=== PATIENT | female | born 1975 | race Caucasian/White ===

== ENCOUNTER 2024-04-29 08:23 | Observation (INO) ==
[2024-04-29 09:51] LABS: ABS Eosinophils 0.2 10^3/uL (0.0-0.5); ABS Lymphocytes 2.3 10^3/uL (1.0-4.8); ABS Monocytes 0.6 10^3/uL (0.0-0.9); ABS Neutrophils 4.6 10^3/uL (1.5-7.6); ABS Nucleated RBC 0.01 10^3/ul; Eosinophil % 2.9 %; Hematocrit 36.5 % (35-45); Hemoglobin 12.5 g/dL (11.5-14.3); Lymphocyte % 29.2 %; Mean Corpuscular Hemoglobin 30.1 pg (27-33); Mean Corpuscular Hgb Conc 34.3 g/dL (31-36); Mean Corpuscular Volume 87.8 fL (80-97); Mean Platelet Volume 8.7 fL (7.5-11.2); Nucleated Red Blood Cells % 0.2 %/100WBC (0.0-0.8); Platelet Count 296 10^3/uL (150-450); Red Blood Count 4.16 10^6/uL (3.63-4.92); Red Cell Distribution Width 13.1 % (12-17); White Blood Count 7.8 10^3/uL (3.8-11.8)
[2024-04-29] MEDS ORDERED: oxyCODONE SR 10 mg TAB ONE (10:00)
[2024-04-29] MEDS ORDERED: Scopolamine 1 mg/72hr PATCH ONE (10:00)
[2024-04-29] MEDS ORDERED: Ondansetron 4 mg VIAL 2 MG/ML 2 ml VIAL ONE (10:00)
[2024-04-29] MEDS ORDERED: Clindamycin 900 MG/50 **NS BAG 900 MG/50 ML BAG ONE (10:01)
[2024-04-29 10:02] LABS: Activated Partial Thrombo Time 33.7 seconds (26.0-38.0); INR 1.05 (0.83-1.13)
[2024-04-29] MEDS: oxyCODONE SR 10 mg TAB PO ONE (10:02)
[2024-04-29] MEDS: Scopolamine 1 mg/72hr PATCH TRANSDERM ONE (10:02)
[2024-04-29] MEDS: Ondansetron 4 mg VIAL 2 MG/ML 2 ml VIAL IV ONE (10:02)
[2024-04-29 10:07] LABS: HCG Pregnancy < 0.60 mIU/mL
[2024-04-29 10:17] LABS: Anion Gap 9 mmol/L (2-16); Blood Urea Nitrogen 14 mg/dL (6-24); CO2 Carbon Dioxide 25 mmol/L (22-32); Calcium 9.3 mg/dL (8.6-10.3); Chloride 103 mmol/L (101-111); Creatinine, Serum 0.69 mg/dL (0.51-0.95); Glucose 83 mg/dL (70-100); Potassium 3.8 mmol/L (3.5-5.0); Sodium 137 mmol/L (135-145); eGFR CKD-EPI 106.3 (>60)
[2024-04-29] MEDS ORDERED: Heparin 2 UNITS/ML IVPREMIX 3,000 UNIT/1,500 ML BAG IV ONE (10:34)
[2024-04-29] MEDS ORDERED: Iohexol 350 (CONTRAST) 100 ML PAK IV ONE ×2 (10:34→11:25)
[2024-04-29] MEDS ORDERED: Lidocaine 1% VIAL 10 MG/ML 30 ML VIAL ONE (10:34)
[2024-04-29] MEDS ORDERED: Naloxone 0.4 mg VIAL 0.4 mg/ml 1 ml VIAL IV PUSH PRN (10:36)
[2024-04-29] MEDS ORDERED: Flumazenil 0.5 mg/5 ml 0.1 MG/ML 5 ml VIAL IV PRN (10:36)
[2024-04-29] MEDS ORDERED: nitroGLYCERIN DRIP 25,000 MCG/250 ML BTL ONE (10:42)
[2024-04-29] MEDS: NS 0.9% 1000 ml BAG 500 ML IV ONE (10:45)
[2024-04-29] MEDS: Clindamycin 900 MG/50 **NS BAG 900 MG/50 ML BAG IV ONE (10:49)
[2024-04-29] MEDS ORDERED: Midazolam 5 mg/5 ml VIAL 1 mg/ml 5 ml VIAL (5 mg) ONE (10:55)
[2024-04-29] MEDS ORDERED: fentaNYL 100 mcg/2 ml 50 MCG/ML VIAL ONE ×2 (10:55→11:29)
[2024-04-29] MEDS ORDERED: HYDROmorphone 0.5 MG/0.5 ML SYRINGE ONE (11:38)
[2024-04-29] MEDS ORDERED: HYDROmorphone 1 MG/1 ML SYRINGE ONE (12:33)
[2024-04-29] MEDS: HYDROmorphone 1 MG/1 ML SYRINGE IV SLOW PU PRN (12:35)
[2024-04-29] MEDS ORDERED: Prochlorperazine 5 mg/ml 2 ml VIAL (10 mg) ONE (12:55)
[2024-04-29] MEDS: Prochlorperazine 5 mg/ml 2 ml VIAL (10 mg) IV ONE (12:57)
[2024-04-29] MEDS: Midazolam 10 mg/10 ml VIAL 1 mg/ml 10 ml VIAL (10 mg) IV SLOW PU ONE (13:37)
[2024-04-29] MEDS: fentaNYL 100 mcg/2 ml 50 MCG/ML VIAL IV SLOW PU ONE (13:37)
[2024-04-29] MEDS: NS 0.9% 1,000 ML IV SCH (14:56)
[2024-04-29] MEDS: Ondansetron 4 mg VIAL 2 MG/ML 2 ml VIAL IV SCH (16:43)
[2024-04-29] MEDS: Enoxaparin 40 MG/0.4 ML SYR SUBCUT SCH (16:44)
[2024-04-29] MEDS: Calcium Polycarbophil 625mg TB PO SCH (20:54)
[2024-04-29] MEDS: Duloxetine Sprinkle 30 mg CAP PO SCH (20:56)
[2024-04-29] MEDS: DULoxetine DR 30 mg CAP PO SCH (23:13)
[2024-04-30] MEDS: Calcium Carb (TUMS) 500 mg CHEW TAB PO PRN (02:19)
[2024-04-30 05:14] VITALS: BP 166/86
[2024-04-30 06:24] LABS: ABS Lymphocytes 1.3 10^3/uL (1.0-4.8); ABS Monocytes 0.8 10^3/uL (0.0-0.9); ABS Neutrophils 19.9 10^3/uL (1.5-7.6); ABS Nucleated RBC 0.02 10^3/ul; Hematocrit 40.4 % (35-45); Hemoglobin 13.5 g/dL (11.5-14.3); Mean Corpuscular Hemoglobin 29.3 pg (27-33); Mean Corpuscular Hgb Conc 33.4 g/dL (31-36); Mean Corpuscular Volume 87.6 fL (80-97); Mean Platelet Volume 8.8 fL (7.5-11.2); Nucleated Red Blood Cells % 0.1 %/100WBC (0.0-0.8); Platelet Count 412 10^3/uL (150-450); Red Blood Count 4.61 10^6/uL (3.63-4.92); Red Cell Distribution Width 13.5 % (12-17)
[2024-04-30 06:47] LABS: Calcium 9.4 mg/dL (8.6-10.3); Creatinine, Serum 0.62 mg/dL (0.51-0.95); Magnesium 1.6 mg/dL (1.9-2.7); Potassium 4.2 mmol/L (3.5-5.0); eGFR CKD-EPI 109.1 (>60)
[2024-04-30] MEDS ORDERED: HYDROcodone/ACETAMIN 5/325 mg TAB PO PRN (09:33)
[2024-04-30] MEDS: Ketorolac 10 mg TAB (NF) PO SCH (10:31)
== END 2024-04-30 10:45 | disposition home or self-care (01) ==
LOC: SSU 08:23 → CHICATH 08:23
PROVIDERS: ADMIT Internal Medicine; ATTEND Internal Medicine
PROC: ANG.UFE (2024-04-29 10:15)